=== PATIENT | female | born 1945 | race Hispanic/Latino ===

== ENCOUNTER 2019-11-13 08:37 | Emergency (ER) | payer MEDICARE ==
--- NOTE | 2019-11-13 08:56 | Emergency Department Report ---
ED CPR HPI - General Chief Complaint: Cardiac Arrest/CPR Stated Complaint: CARDIAC ARREST Time Seen by Provider: 11/13/19 08:52 Source: EMS Mode of arrival: Stretcher Limitations: Other - History of Present Illness Initial Comments: 73-year-old female, hx of COPD, on home hospice, presents to ED via EMS in cardiac arrest. Patient was found down by family for unknown amount of time. No bystander CPR administered. Upon EMS arrival patient in asystole. Patient was intubated by EMS. Epi x3 was given with continued arrest. Patient was tra nsported here in ED. EMS reports patient has been down now for approximately 1 hour. Patient apparently has a DNR, however family that was present was unable to find the documents, so they advised EMS perform life-saving measures. Complaint: found unresponsive -: hour(s) (1) Place: home Bystander CPR Performed: No Initial Findings in the Field: unresponsive, no respirations, no pulse, other rhythm (asystole) ROSC in the Field: No Treatments Prior to Arrival: intubation, chest compressions, epinephrine mgs # (3) ED Review of Systems ROS: Stated complaint: CARDIAC ARREST Other details as noted in HPI Comment: Unobtainable due to pts medical conditions ED Past Medical Hx - Past Medical History Additional medical history: unattainable - Surgical History Additional Surgical History: unattainable - Social History Smoking Status: Never Smoker ED Physical Exam - General Limitations: Other - Head Head exam: Present: atraumatic, normocephalic - Eye Pupils: Present: other (fixed) - ENT ENT exam: Present: other (ET tube in place w/ blood present in tube) - Neck Neck exam: Present: normal inspection - Respiratory Respiratory exam: Present: decreased breath sounds - Cardiovascular Cardiovascular Exam: Present: other (pulseless) - GI/Abdominal GI/Abdominal exam: Present: soft. Absent: distended, tenderness - Extremities Exam Extremities exam: Present: normal inspection - Neurological Exam Neurological exam: Present: other (GCS=3) - Skin Skin exam: Present: warm, dry, intact, normal color ED Medical Decision Making - Medical Decision Making - down for unknown amt of time prior to EMS arrival - given epi x 3 by EMS - ACLS x approx 1 hr w/ EMS - continued asystole in ED - time of called at 08:38 Critical care attestation.: If time is entered above; I have spent that time in minutes in the direct care of this critically ill patient, excluding procedure time. ED Disposition Clinical Impression: Cardiac arrest Disposition: DC-20 Is pt being admited?: No Condition: Stable Referrals: PRIMARY CARE, [Primary Care Provider] - 3-5 Days
== END 2019-11-13 16:39 ==
LOC: ED 08:37
DX: I46.9 Cardiac arrest, cause unspecified (principal)